=== PATIENT | female | born 1980 | race Two or more races ===

== ENCOUNTER 2021-07-26 10:57 | Emergency (ER) | payer OTHER ==
[~2021-07-26] VITALS: Ht 152.4 cm; Wt 49.9 kg
[~2021-07-26 10:57] MED LIST: COMPLEX B30 ML TP; NORVASC10 MG PO
== END 2021-07-26 16:29 | disposition home or self-care (01) ==
LOC: ER 10:57
DX: N92.6 Irregular menstruation, unspecified (principal); N84.0 Polyp of corpus uteri; R10.2 Pelvic and perineal pain; Z88.8 Allergy status to other drugs, medicaments and biological substances

== ENCOUNTER 2021-08-18 09:55 | Outpatient (CLI) | payer OTHER | END 2021-08-18 10:07 | disposition home or self-care (01) | LOC: SONOGRAMA 09:55 | PROVIDERS: ATTEND Obstetrics & Gynecology | DX: N84.1 Polyp of cervix uteri (principal) ==

== ENCOUNTER 2021-08-24 07:13 | Outpatient (CLI) | payer OTHER | END 2021-08-24 07:20 | disposition home or self-care (01) | LOC: MAMO-SONO 07:13 | PROVIDERS: ATTEND Obstetrics & Gynecology | DX: N60.09 Solitary cyst of unspecified breast (principal) ==

== ENCOUNTER 2023-08-14 08:23 | Outpatient (CLI) | payer OTHER | END 2023-08-14 08:26 | disposition home or self-care (01) | LOC: MAMO-SONO 08:23 | PROVIDERS: ATTEND Obstetrics & Gynecology | DX: N60.09 Solitary cyst of unspecified breast (principal) ==